=== PATIENT | female | born 1975 | race American Indian/Alaskan Native ===

== ENCOUNTER 2017-08-01 23:30 | Outpatient (CLI) | payer SELFPAY ==
[2017-08-02] MEDS ORDERED: VISTARIL PO PRN (02:51)
[2017-08-02 05:21] VITALS: BP 120/78
== END 2017-08-02 03:05 | disposition home or self-care (01) ==
LOC: TRG 23:30
PROVIDERS: ATTEND Obstetrics & Gynecology
DX: O09.523 Supervision of elderly multigravida, third trimester (principal); O62.9 Abnormality of forces of labor, unspecified; Z3A.39 39 weeks gestation of pregnancy
CPT/HCPCS: 59025; Q0177

== ENCOUNTER 2017-08-06 21:15 | Outpatient (CLI) | payer SELFPAY ==
[2017-08-06 21:34] VITALS: BP 110/67
--- NOTE | 2017-08-06 23:36 | Ultrasound Report ---
FINAL REPORT PROCEDURE: Ultrasound biophysical profile without nonstress test. TECHNIQUE: Sonographic evaluation for breathing, movement, tone, and amniotic fluid volume was performed. CPT 86501 HISTORY: , post dates. COMPARISON: No prior studies are available for comparison. FINDINGS: Amniotic fluid volume: 2. breathin. movement: 2. tone: 2. Score: 8 of 8. heart rate 136. Amniotic fluid index 7.0. IMPRESSION: Normal biophysical profile.
--- NOTE | 2017-08-06 23:38 | Ultrasound Report ---
FINAL REPORT PROCEDURE: Limited obstetrical ultrasound. TECHNIQUE: Real-time limited sonographic examination was performed for evaluation of size, position, heartbeat, fluid volume for each fetus with image documentation (1 or more fetuses). CPT 76687 HISTORY: , post dates. COMPARISON: No prior studies are available for comparison. FINDINGS: There is a single viable fetus in cephalic presentation. Cardiac activity is measured at 136 beats per minute. 4 pockets of amniotic fluid were measured. The amniotic fluid index measures 7.0 centimeters. IMPRESSION: Viable fetus in cephalic presentation.
== END 2017-08-06 23:22 | disposition home or self-care (01) ==
LOC: TRG 21:15
PROVIDERS: ATTEND Obstetrics & Gynecology
DX: O09.523 Supervision of elderly multigravida, third trimester (principal); O48.0 Post-term pregnancy; Z3A.40 40 weeks gestation of pregnancy
CPT/HCPCS: 76815; 76819

== ENCOUNTER 2017-08-07 10:16 | Outpatient (CLI) | payer OTHER ==
[2017-08-08 07:13] VITALS: BP 141/71
== END 2017-08-07 11:13 | disposition home or self-care (01) ==
LOC: TRG 10:16
PROVIDERS: ATTEND Obstetrics & Gynecology
DX: O09.523 Supervision of elderly multigravida, third trimester (principal); O48.0 Post-term pregnancy; Z3A.40 40 weeks gestation of pregnancy
CPT/HCPCS: 59025

== ENCOUNTER 2017-08-08 08:26 | Inpatient (IN) | payer OTHER ==
[2017-08-08] MEDS: STADOL IV PRN ×2 (08:50→12:36)
[2017-08-08] MEDS ORDERED: SUBLIMAZE IV PRN ×2 (08:58→10:00)
[2017-08-08] MEDS ORDERED: PITOCin/NS 30 UNIT/500ML 30 UNITS/500 ML BAG IV SCH ×2 (09:00→09:30)
[2017-08-08] MEDS ORDERED: PITOCin/NS 20 UNIT/1000ML DRIP 20 UNITS/1,000 ML BAG IV SCH ×3 (09:00→21:00)
[2017-08-08] MEDS ORDERED: LACTATED RINGERS 1,000 ML IV SCH (09:00)
[2017-08-08] MEDS: LACTATED RINGERS 1,000 ML IV SCH ×3 (09:00→19:09)
--- NOTE | 2017-08-08 09:01 | History and Physical Report ---
History of Present Illness Date of examination: 08/08/17 Date of admission: 08/08/17 08:26 Chief complaint: Labor History of present illness: Pt is a 41yo BF EDC 08/06/17; EGA 40 2/7 weeks presents to L&D complaining of RUC's q 3-4 mins. She received late and sporadic care at [facility] since 24 weeks and was only seen 3 times. course has been unremarkable. records are available but GBS is unknown. Past History Past Medical History: no pertinent history Past Surgical History: no surgical history Family/Genetic History: none Social history: no significant social history, single - Obstetrical History Expected Date of Delivery: 08/06/17 Actual Gestation: 40 Week(s) 2 Day(s) : 3 Medications and Allergies Allergies Allergy/AdvReac Type Severity Reaction Status Date / Time No Known Allergies Allergy Verified 08/02/17 02:53 Home Medications Medication Instructions Recorded Confirmed Last Taken Type One Daily Tablet 1 tab PO DAILY 08/08/17 08/08/17 08/07/17 09:00 History Active Meds: Active Medications Butorphanol Tartrate (Stadol) 2 mg IV Q2H PRN PRN Reason: Labor Pain Lactated Ringer's (Lactated Ringers) 1,000 mls @ 125 mls/hr IV DIRECT MYLES Oxytocin/Sodium Chloride (Pitocin/Ns 20 Unit/1000ml Drip) 20 units in 1,000 mls @ 125 mls/hr IV DIRECT MYLES Review of Systems All systems: negative - Physical Exam Breasts: Positive: deferred Cardiovascular: Regular rate Lungs: Positive: Clear to auscultation Abdomen: Positive: normal appearance Genitourinary (Female): Positive: normal external genitalia Vagina: Positive: normal moisture Uterus: Positive: enlarged Extremities: Positive: normal - Obstetrical FHR: category 1 Uterine Contraction Monitor Mode: External Cervical Dilatation: 3 Cervical Effacement Percentage: 90 station: -2 Uterine Contraction Pattern: Irregular Uterine Tone Measurement Phase: Contraction Uterine Contraction Intensity: Mild Results Result Diagrams: 08/08/17 07:45 All other labs normal. Assessment and Plan - Patient Problems (1) 40 weeks gestation of Onset Date: 08/08/17 Current Visit: Yes Status: Acute Plan to address problem: A: IUP @ 40 2/7 weeks in labor Unknown GBS P: Admit to L&D for expectant vaginal delivery IV Ampicillin
[2017-08-08] MEDS ORDERED: ePHEDrine SULFATE IV PRN ×2 (09:30→14:41)
[2017-08-08] MEDS ORDERED: XYLOCAINE 2% INFILTRATI NR (09:30)
[2017-08-08] MEDS ORDERED: BRETHINE SUB-Q PRN (10:00)
[2017-08-08] MEDS ORDERED: ZOFRAN IV PRN ×2 (10:00→20:56)
[2017-08-08] MEDS ORDERED: NARCAN 0.4 MG/1 ML IV PRN (10:00)
[2017-08-08] MEDS ORDERED: MINERAL OIL PO PRN (10:00)
[2017-08-08] MEDS ORDERED: BRETHINE IVP PRN (10:00)
[2017-08-08 10:31] LABS: Hematocrit 38.8 % (30.3-42.9); Hemoglobin 12.9 gm/dl (10.1-14.3); Mean Corpuscular HGB Conc 33 % (30-34); Mean Corpuscular Hemoglobin 30 pg (28-32); Mean Corpuscular Volume 89 fl (79-97); Platelet Count 171 K/mm3 (140-440); Red Blood Count 4.37 M/mm3 (3.65-5.03); Red Cell Distribution Width 15.3 % (13.2-15.2)
[2017-08-08] MEDS ORDERED: POLYCILLIN/NS 2 GM/100 ML 2 GM/100 ML BAG IV ONE (11:00)
[2017-08-08] MEDS ORDERED: NARCAN 2 MG/2 ML IV PRN (14:41)
[2017-08-08] MEDS: POLYCILLIN/NS 1 GM/50 ML 1 GM/50 ML BAG IV SCH ×2 (15:00→19:12)
--- NOTE | 2017-08-08 15:14 | Anesthesia Consultation ---
Anesthesia Consult and Med Hx - Airway Anesthetic Teeth Evaluation: Good ROM Head & Neck: Adequate Mental/Hyoid Distance: Adequate Mallampati Class: Class II Intubation Access Assessment: Good - Pulmonary Exam CTA: Yes - Cardiac Exam Cardiac Exam: RRR - Pre-Operative Health Status ASA Pre-Surgery Classification: ASA2 Proposed Anesthetic Plan: Epidural, Spinal - Pulmonary Hx Asthma: No COPD: No Hx Pneumonia: No - Cardiovascular System Hx Hypertension: No - Central Nervous System Hx Seizures: No Hx Psychiatric Problems: No - Endocrine Hx Renal Disease: No Hx End Stage Renal Disease: No Hx Hypothyroidism: No Hx Hyperthyroidism: No - Hematic Hx Anemia: No Hx Sickle Cell Disease: No - Other Systems Hx Alcohol Use: No
[2017-08-08] MEDS ORDERED: fentaNYL-BUPIV 2 MCG/ML-0.125% 200 MCG/100 ML BAG EPIDURAL SCH (16:00)
--- NOTE | 2017-08-08 20:50 | Procedure Note ---
OB Delivery Note - Delivery Date of Delivery: 08/08/17 Surgeon: NATALIIA JEAN BAPTISTE Estimated blood loss: 300cc - Vaginal Delivery presentation: vertex Delivery position: OA Intrapartum events: PROM->1hr before delivery, meconium, shoulder dystocia ( Resolved with Mc Chalo's positioning and suprapubic pressure) Delivery induction: none Delivery augmentation: pitocin Delivery monitor: external FHT, external uterine, internal uterine Route of delivery: Delivery placenta: spontaneous Delivery cord: 3 umbilical vessels Episiotomy: none Delivery laceration: 1st degree (perineal) Delivery repair: vicryl Anesthesia: epidural Delivery comments: Infant delivered after shoulder dystocia resolved with Brightobert's positioning and suprapubic pressure, and handed to awaiting Peds/RT in attendance. - A at 1 minute: 4 at 5 minutes: 8 Gender: Male (4112gms)
[2017-08-08] MEDS ORDERED: NORCO 5/325 PO PRN (20:56)
[2017-08-08] MEDS ORDERED: MILK OF MAGNESIA PO PRN (20:56)
[2017-08-08] MEDS ORDERED: TUCKS PAD TP PRN (20:56)
[2017-08-08] MEDS ORDERED: PHENERGAN PO PRN (20:56)
[2017-08-08] MEDS ORDERED: TYLENOL PO PRN (20:56)
[2017-08-08] MEDS ORDERED: BENADRYL PO PRN (20:56)
[2017-08-08] MEDS ORDERED: PHENERGAN PR PRN (20:56)
[2017-08-08] MEDS ORDERED: LANSINOH TP PRN (20:56)
[2017-08-08] MEDS ORDERED: DULCOLAX PR PRN (20:56)
[2017-08-08] MEDS ORDERED: SODIUM CHLORIDE FLUSH SYRINGE 10 ML IV SCH (21:00)
[2017-08-08] MEDS ORDERED: SENOKOT S PO SCH (22:00)
[2017-08-09] MEDS ORDERED: BOOSTRIX IM ONE (06:00)
--- NOTE | 2017-08-09 09:26 | Progress Note ---
Assessment and Plan - Patient Problems (1) 40 weeks gestation of Onset Date: 08/08/17 Current Visit: Yes Status: Resolved (2) (normal spontaneous vaginal delivery) Onset Date: 08/09/17 Current Visit: Yes Status: Resolved Plan to address problem: A: S/P - PPD #1 Doing well Asymptomatic anemia - stable P: May go home tomorrow Subjective - Subjective Date of service: 08/09/17 Principal diagnosis: s/p - PPD #1 Interval history: Pt is feeling well without complaints. Bleeding improved. Patient reports: appetite normal, voiding normally, pain well controlled, ambulating normally : doing well, nursing well, bottle feeding Objective - Vital Signs Latest vital signs: Vital Signs Temp Pulse Resp BP BP Pulse Ox 08/09/17 03:55 98.6 F 72 18 114/63 08/08/17 22:31 99.9 F H 79 18 110/56 08/08/17 21:50 90 90 08/08/17 21:48 88 107/62 08/08/17 21:45 87 57 L 08/08/17 21:40 91 H 100 08/08/17 21:35 90 100 08/08/17 21:33 93 H 108/72 08/08/17 21:30 90 99 08/08/17 21:25 90 100 08/08/17 21:20 89 100 08/08/17 21:18 90 117/66 08/08/17 21:15 98 H 84 08/08/17 21:14 98 H 94 08/08/17 21:13 98.9 F 95 H 18 117/66 100 08/08/17 21:10 95 H 100 08/08/17 21:05 99 H 53 L 08/08/17 21:03 100 H 126/85 08/08/17 21:01 70 L 08/08/17 21:00 103 H 100 08/08/17 20:55 117 H 75 L 08/08/17 20:54 95 H 100 08/08/17 20:49 70 100 08/08/17 20:48 62 89 08/08/17 20:33 144 H 215/144 08/08/17 20:24 109 H 94 08/08/17 20:23 91 H 99 08/08/17 20:18 113 H 96 08/08/17 20:13 118 H 100 08/08/17 20:08 72 100 08/08/17 20:05 66 72 L 08/08/17 20:03 90 144/67 100 08/08/17 19:58 109 H 100 08/08/17 19:55 77 45 L 08/08/17 19:52 101 H 100 08/08/17 19:48 93 H 148/77 08/08/17 19:47 105 H 100 08/08/17 19:42 78 100 08/08/17 19:37 77 100 08/08/17 19:35 83 127/72 08/08/17 19:32 74 100 08/08/17 19:28 98.7 F 77 18 127/72 100 08/08/17 19:27 77 100 08/08/17 19:22 76 100 08/08/17 19:19 78 132/70 08/08/17 19:17 91 H 100 08/08/17 19:12 79 100 08/08/17 19:07 90 100 08/08/17 19:02 81 116/58 100 08/08/17 18:57 77 100 08/08/17 18:52 82 100 08/08/17 18:48 76 122/61 08/08/17 18:47 77 100 08/08/17 18:42 81 100 08/08/17 18:37 76 100 08/08/17 18:33 81 141/61 08/08/17 18:32 80 100 08/08/17 18:27 90 100 08/08/17 18:22 93 H 100 08/08/17 18:19 79 129/60 83 L 08/08/17 18:16 79 100 08/08/17 18:11 91 H 100 08/08/17 18:06 106 H 100 08/08/17 18:04 104 H 151/84 08/08/17 18:01 126 H 100 08/08/17 18:00 98.7 F 20 08/08/17 17:56 72 100 18 17:51 79 100 18 17:49 72 132/59 18 17:46 74 100 18 17:41 83 100 18 17:36 74 100 18 17:34 74 128/65 18 17:31 72 100 08/08/17 17:26 75 100 08/08/17 17:21 72 100 08/08/17 17:18 69 129/66 08/08/17 17:16 75 100 08/08/17 17:11 81 100 08/08/17 17:06 73 100 08/08/17 17:04 76 155/70 08/08/17 17:01 81 100 08/08/17 16:56 74 100 08/08/17 16:51 79 100 08/08/17 16:48 75 143/81 08/08/17 16:46 77 100 08/08/17 16:00 97.6 F 20 08/08/17 11:33 76 99 08/08/17 11:28 83 98 08/08/17 11:23 85 97 08/08/17 11:18 84 124/59 98 08/08/17 11:13 76 97 08/08/17 11:08 79 97 08/08/17 11:03 70 121/69 99 Intake and Output 08/08/17 08/09/17 08/09/17 22:59 06:59 14:59 Intake Total 1027.367 120 Output Total 300 900 Balance 727.367 -780 Intake: IV 1027.367 Lactated Ringers 1,000 ml 891.667 @ 125 mls/hr IV DIRECT [facility] Rx#:[id number] PITOCin/NS 30 UNIT/500ML 85.7 30 units In 500 ml @ 4 mls/hr IV TITR MYLES Rx#: [id number] POLYCILLIN/NS 1 GM/50 ML 50 1 gm In 50 ml @ 100 mls/ hr IV Q4H [facility] Rx#: [id number] Oral 120 Output: Urine 900 Indwelling Catheter 900 Emesis 300 Other: Total, Intake Amount 120 Total, Output Amount 300 900 Estimated Blood Loss 300 - Exam Breasts: Present: deferred Cardiovascular: Present: Regular rate Lungs: Present: Clear to auscultation Abdomen: Present: normal appearance, soft Uterus: Present: normal, firm, fundal height below umbilicus Extremities: Present: normal - Labs Labs: Abnormal lab results 08/08/17 Range/Units 07:45 RDW 15.3 H (13.2-15.2) % Laboratory Tests 08/08/17 08/08/17 08/08/17 07:45 07:45 07:45 WBC 7.2 RBC 4.37 Hgb 12.9 Hct 38.8 MCV 89 MCH 30 MCHC 33 RDW 15.3 H Plt Count 171 RPR Nonreactive Blood Type B POSITIVE Antibody Screen Negative 08/09/17 09:18 WBC RBC Hgb 10.6 Hct 31.7 D MCV MCH MCHC RDW Plt Count RPR Blood Type Antibody Screen
[2017-08-09 10:01] LABS: Hematocrit 31.7 % (30.3-42.9); Hemoglobin 10.6 gm/dl (10.1-14.3)
[2017-08-09] MEDS: FEOSOL PO SCH ×2 (12:15→23:09)
[2017-08-09] MEDS: COLACE PO SCH ×2 (12:15→23:10)
[2017-08-09] MEDS: MOTRIN PO SCH ×2 (12:16→18:41)
[2017-08-09] MEDS: PRENATAL VITAMIN PO SCH (12:16)
[2017-08-09] MEDS ORDERED: M-M-R II VACCINE SUB-Q ONE (20:56)
[2017-08-10] MEDS: PRENATAL VITAMIN PO SCH (08:20)
[2017-08-10] MEDS: FEOSOL PO SCH (08:20)
[2017-08-10] MEDS: COLACE PO SCH (08:20)
--- NOTE | 2017-08-10 14:13 | Discharge Summary ---
Providers - Providers Date of Admission: 08/08/17 08:26 Date of discharge: 08/10/17 Attending physician: NATALIIA JEAN BAPTISTE Primary care physician: NATALIIA JEAN BAPTISTE Hospitalization Reason for admission: active labor, IUP at term Delivery: Episiotomy: none Laceration: 1st degree Other procedures: none complications: none Discharge diagnosis: IUP at term delivered, baby: male Hospital course: Unremarkable. Condition at discharge: Good Disposition: DC-01 TO HOME OR SELFCARE - Discharge Diagnoses (1) 40 weeks gestation of Status: Resolved (2) (normal spontaneous vaginal delivery) Status: Resolved Plan - Discharge Medications Prescriptions: Ferrous Sulfate [Feosol 325 MG tab] 325 mg PO BID #60 tablet Ibuprofen [Motrin 600 MG tab] 600 mg PO Q6HR #30 tablet Vit-Fe Fumar-FA [ Vitamin] 1 each PO QDAY #30 tablet - Provider Discharge Summary Activity: routine, no sex for 6 weeks, no heavy lifting 4 weeks, no strenuous exercise Diet: routine Instructions: routine Additional instructions: [] Smoking cessation referral if applicable(refer to patient education folder for contact #) [] Refer to [facility] Booklet Call your doctor immediately for: * Fever > 100.5 * Heavy vaginal bleeding ( >1 pad per hour) * Severe persistent headache * Shortness of breath * Reddened, hot, painful area to leg or breast * Drainage or odor from incision. * Keep incision clean and dry at all times and follow doctor's instructions regarding bathing/showering - Follow up plan Follow up: NATALIIA JEAN BAPTISTE MD [Primary Care Provider] - 6 Weeks Forms: [facility] Discharge Summary
[2017-08-10] MEDS: MOTRIN PO SCH (16:03)
[2017-08-10 17:30] VITALS: BP 112/63
== END 2017-08-10 21:00 | disposition home or self-care (01) | DRG 775 ==
LOC: LD 08:26 → OB 23:00
PROVIDERS: ADMIT Obstetrics & Gynecology; ATTEND Obstetrics & Gynecology
PROC: 10E0XZZ Delivery of Products of Conception, External Approach (ICD-10-PCS; principal; 2017-08-08)
PROC: 0HQ9XZZ Repair Perineum Skin, External Approach (ICD-10-PCS; 2017-08-08)
PROC: 3E0R3BZ Introduction of Anesthetic Agent into Spinal Canal, Percutaneous Approach (ICD-10-PCS; 2017-08-08)
PROC: 00HU33Z Insertion of Infusion Device into Spinal Canal, Percutaneous Approach (ICD-10-PCS; 2017-08-08)
PROC: 3E0234Z Introduction of Serum, Toxoid and Vaccine into Muscle, Percutaneous Approach (ICD-10-PCS; 2017-08-09)
DX: O42.02 Full-term premature rupture of membranes, onset of labor within 24 hours of rupture (principal); O70.0 First degree perineal laceration during delivery; O34.219 Maternal care for unspecified type scar from previous cesarean delivery; O77.0 Labor and delivery complicated by meconium in amniotic fluid; O99.03 Anemia complicating the puerperium; D64.9 Anemia, unspecified; O66.0 Obstructed labor due to shoulder dystocia; Z3A.40 40 weeks gestation of pregnancy; Z37.0 Single live birth; O09.523 Supervision of elderly multigravida, third trimester; Z23 Encounter for immunization
CPT/HCPCS: 36415; 85014; 85018; 85027; 86592; 86850; 86900; 86901; 88307; 99211; G0463; J0290; J0595; J2590; J3010; J7120